=== PATIENT | female | born 1970 | race Caucasian/White ===

== ENCOUNTER 2017-05-01 10:22 | Emergency (ER) | payer OTHER, MEDICARE ==
[~2017-05-01] VITALS: Ht 162.6 cm; Wt 104.5 kg
--- NOTE | 2017-05-01 10:39 | ED.REPORT ---
HPI-Chest Pain 40 and Over Date of Service May 01, 2017 ED Provider: Natalio [place] Patient is a 46 year old female with a hx of prediabetes and CVAx2 who presents to the ED via EMS complaining of L sided chest pain while sitting it 0930 this morning. She describes her pain as a burning pressure that radiates through to her upper back and her L arm. Associated symptoms include nausea and SOB. She denies fatigue, fever, new numbness or weakness, or any other symptoms. She was given nitro x2 and aspirin en route with some relief. She has not has similar symptoms previously. Her mother had an DE in her early 50's. Patient only took her methylphenidate this morning. 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 Smoking History Never Smoker Social History Alcohol Use: "Social" Other Social History: Ambulatory Status Independent Review of Systems Constitutional: Denies: Fatigue, Fever Cardiovascular: Reports: Chest pain GI: Reports: Nausea Musculoskeletal: Reports: Back pain, Extremity pain (L arm) Neurologic: Denies: Numbness, Weakness Complete sys rev & neg: except as marked. Physical Exam Initial Vital Signs Vital Signs (First) Date Time Temp Pulse Resp B/P Pulse Ox O2 Delivery O2 Flow Rate FiO2 05/01/17 10:40 36.9 68 18 184/81 97 Room Air Initial VS: Reviewed, Vital signs abnormal Head / Eyes: Atraumatic, Normocephalic Neck: Full range of motion Skin: Warm, Dry Neurologic: Alert, Oriented, Nonfocal Psychiatric: Mood/affect normal, Behavior normal, Normal thought content General/Constitutional: Awake, Alert, No acute distress, Well developed Respiratory / Chest: Breath sounds NL, Breath sounds = bilat, No respiratory distress chest pain not reproducible with palpation. Cardiovascular: Heart rate NL, Regular rhythm, Heart sounds NL Abdomen: Soft, Non-tender Interpretation & Diagnostics Lab Results Interpretation Result Diagram: 05/01/17 1123 05/01/17 1123 Test 05/01/17 11:23 05/01/17 13:30 White Blood Count 7.2th/mm3 (3.8-10.1) Red Blood Count 4.96mil/mm3 (3.90-5.20) Hemoglobin 14.8g/dL (12.0-15.6) Hematocrit 44.4% (35.0-46.0) Mean Corpuscular Volume 89.5fL (81-100) Mean Corpuscular Hemoglobin 29.8pg (27.0-35.0) Mean Corpuscular Hemoglobin Concent 33.3% (32.0-37.0) Red Cell Distribution Width 14.2% (12.3-15.4) Platelet Count 179bil/L (150-400) Neutrophils (%) (Auto) 59.8% (40-74) Lymphocytes (%) (Auto) 25.8% (14-46) Monocytes (%) (Auto) 9.7% (4-12) Eosinophils (%) (Auto) 4.0% (0-5) Basophils (%) (Auto) 0.4% (0-3) Sodium Level 138mEq/L (134-144) Potassium Level 4.4mEq/L (3.5-5.2) Chloride Level 103mEq/L (97-108) Carbon Dioxide Level 18mmol/L (18-29) Blood Urea Nitrogen 11mg/dL (6-24) Creatinine 0.75mg/dL (0.57-1.00) Estimat Glomerular Filtration Rate 118mL/min (>59) Glucose Level 125mg/dL (60-99) Calcium Level 9.4mg/dL (8.5-10.1) Magnesium Level 2.1mg/dL (1.6-2.6) Total Bilirubin 0.4mg/dL (0.0-1.2) Aspartate Amino Transf (AST/SGOT) 23U/L (0-50) Alanine Aminotransferase (ALT/SGPT) 18U/L (0-32) Alkaline Phosphatase 73U/L (25-150) Total Protein 7.2g/dL (6.4-8.4) Albumin 4.0g/dL (3.4-5.0) Troponin T < 0.010ug/L (0.0-0.011) ECG Interpretation ECG Interpretation: sinus rate 72 nL interval L axis deviation no acute ST changes Time: 10:44 Interpreted by: ED physician ECG Interpretation: sinus rate 62 No change from previous Time: 12:46 Interpreted by: ED physician Repeat ECG: Repeat ECG unchanged X-Ray Chest Interpretation Chest Xray Interpretation: IMPRESSION: 1. No acute cardiopulmonary disease. Dictated by: Theo Arriaga M.D. on 05/01/2017 at 11:04 Approved by: Theo Arriaga M.D. on 05/01/2017 at 11:04 View: Portable, 1 view Interpretation / Wet Read by: Interpret - Radiologist CT Chest Interpretation IMPRESSION: 1. Normal thoracic and abdominal aorta. No aneurysm or dissection. No aortic leak. 2. No definitive pulmonary embolus. Pulmonary arteries are normal in caliber. 3. A 6 mm ground glass nodule in the posterior segment of the left upper lobe. Please see followup recommendation. 4. A large left thyroid nodule. Please correlate with ultrasound findings and biopsy result dated 12/11/2016. 5. Trace pericardial effusion. Fleischner Society criteria for SUB-SOLID lung nodule followup. Solitary pure ground-glass nodules5 mm or lessNo followup needed. >5 mm3 mo follow-up CT to confirm persistence. Then annual CT for 3 years. Part-solid nodules3 mo follow-up CT to confirm persistence. If persistent with solid component <5 mm, annual CT for at least 3 years. If solid component is 5 mm or more, biopsy or surgical resection. Consider PET-CT for lesions > 10 mm. Multiple sub-solid nodulesPure ground glass nodules [address] at 2 and 4 years. Pure ground glass nodules >5 mm without dominant lesion. [address] to confirm persistence, then annual followup CT for at least 3 years. Dominant nodule(s) with part-solid or solid component. [address] to confirm persistence. If persistent, consider biopsy or surgical resection, shannon if lesions have >5 mm solid component. Dictated by: Alexa Gonzalez M.D. on 05/01/2017 at 14:26 Approved by: Alexa Gonzalez M.D. on 05/01/2017 at 14:36 Study type: CT pulm angiogram Interpretation / Wet Read by: Interpret - Radiologist Re-Eval/Medical Decision Med Decision/Clinical Course The patient presents with sudden onset of left chest and left upper back pain radiating to her left arm. Her story is very concerning for ischemia or dissection. The patient was quite hypertensive upon arrival. Her symptoms almost completely resolved but did not entirely. She was evaluated for pulmonary embolus, aortic dissection, and DE. There is no obvious explanation for her symptoms. The patient had 2 negative troponins and to unchanged EKGs. The patient's pain is somewhat atypical for ischemia given her back symptoms. A partial list of additional differential diagnoses considered were pneumonia, esophageal spasm, electrolyte abnormality, radiculopathy, and pleurisy. Time of Eval: 12:59 Re-Evaluation/Progress Note: Rechecked patient. Pain was down to a 2/10 but is now coming back. Time of Eval: 14:43 Re-Evaluation/Progress Note: Rechecked pt. Discussed imaging results. Discussed plan for discharge. Patient understands and agrees with plan. All questions addressed at this time. Consultation : Referral / Consult Name: Bandar Haywood DO Call Returned at: 14:54 [employer] Repairer: Will see in office, Agrees with eval, Agrees with plan Note: Discussed pt case with pt's PCP. Will follow up with pt in office. Counseled Regarding: Diagnosis, Lab results, Need for follow-up, When/why to return to ED Discharge & Departure Primary Impression: Chest pain Chest pain type: unspecified Qualified Code: R07.9 - Chest pain, unspecified Additional Impression: Back pain Back pain location: back pain in unspecified location Chronicity: acute Back pain laterality: left Qualified Code: M54.9 - Dorsalgia, unspecified Disposition: Home Discharge Condition All VS Reviewed: Yes Condition: Stable Patient Instructions: Back Pain (ED), Chest Pain (ED) Additional Instructions: Thank you for entrusting us with your care. We have ruled out several serious causes for your pain including heart attack, blood clot in the lung, tearing of the vessel, and pneumonia. Your heart could still be the cause of your symptoms so you would follow up with your primary doctor in the next week to schedule a stress test. You will need a follow up CT in 3 months. Return to the emergency department if you experience new or worsening symptoms. Referrals: Bandar Haywood DO (PCP) Scribe Attestation Portions of this note were transcribed by Jamey Robb. I, Dr. Lance personally performed the history, physical exam and medical decision-making; I reviewed and confirmed the accuracy of the information in the transcribed note. Signed by: Jamey Robb 05/01/17, 2580 copies to: Bandar Haywood Jena M MD May 01, 2017 10:39 JAMEY ROBB May 01, 2017 10:57
[2017-05-01 10:40] VITALS: BP 184/81; PULSE 68; RESP 18; O2SAT 97
[2017-05-01] MEDS ORDERED: Nitroglycerin 2% 1 Gm Ointment TOPICAL ONE (11:00)
[2017-05-01] MEDS ORDERED: MeTOProlol 1 mg/mL 5 mL Inj IVPUSH ONE (11:00)
--- NOTE | 2017-05-01 11:05 | DRSVH ---
PROCEDURE: X-RAY CHEST ONE VIEW, PORTABLE ([id number]) INDICATIONS: Chest pain TECHNIQUE: One view of the chest was acquired. COMPARISON: None. FINDINGS: Surgical changes and devices: None. Lungs and pleura: No pleural effusions or pneumothorax. Lungs are clear. Mediastinum: Mediastinal contours appear normal. Heart size is normal. Bones and chest wall: No suspicious bony lesions. Overlying soft tissues appear unremarkable. IMPRESSION: 1. No acute cardiopulmonary disease. Dictated by: Theo Arriaga M.D. on 05/01/2017 at 11:04 Approved by: Theo Arriaga M.D. on 05/01/2017 at 11:04
[2017-05-01 11:19] VITALS: BP 135/74; PULSE 92; RESP 18; O2SAT 94
[2017-05-01 11:31] LABS: BASOPHILS % (AUTO) 0.4 % (0-3); MONOCYTES % (AUTO) 9.7 % (4-12); Mean Corpuscular Hemoglobin 29.8 pg (27.0-35.0); Mean Corpuscular Volume 89.5 fL (81-100); NEUTROPHILS % (AUTO) 59.8 % (40-74); Platelet Count 179 bil/L (150-400)
[2017-05-01 11:35] VITALS: BP 129/82; PULSE 60; RESP 18; O2SAT 96
[2017-05-01] MEDS ORDERED: LidocaineVisc 2%:Antacid 1:1 10 mL Syringe PO ONE (11:40)
[2017-05-01 11:52] LABS: TROPONIN T 0.01 ug/L (0.0-0.011)
[2017-05-01 12:04] LABS: Magnesium 2.1 mg/dL (1.6-2.6)
[2017-05-01 12:15] VITALS: BP 133/74; PULSE 68; RESP 16; O2SAT 94
[2017-05-01] MEDS ORDERED: HYDROmorphone 0.5 mg/0.5 mL iSecure Syringe IVPUSH ONE (14:00)
--- NOTE | 2017-05-01 14:39 | DRSVH ---
PROCEDURE: CT ANG CHEST/ABD W/WO CONTRAST ([id number]) INDICATIONS: chest and back pain TECHNIQUE: Precontrast 5 mm thick sections acquired from the lung apices to the iliac crests. After the adminis tration of intravenous contrast, 3 mm thick sections again acquired from the lung apices to the iliac crests. 3-dimensional maximum intensity projection (MIP) oblique sagittal and coronal reformats wer e then acquired, and/or 3-dimensional volume rendering reformats. For radiation dose reduction, the following was used: automated exposure control. COMPARISON: None. FINDINGS: Image quality: Excellent. AORTA: The aorta is normal in caliber and enhancement. No aneurysm or dissection. No evidence for ao rtic leak. The celiac trunk, superior mesenteric artery, and inferior mesenteric artery are normal. T here is a single renal artery on the right side, which is normal in caliber and patent. There are 2 l eft renal artery with an accessory left renal artery supplying the inferior pole. Both left renal art eries are patent without significant disease. The bifurcation is normal. The common iliac arteries ar e normal in caliber. CHEST: Lungs and pleura: There is a 6 mm ground glass nodule in the posterior segment of the left upper lob e (series 10 image 21). No acute airspace opacities. No pleural effusions or pneumothorax. Central and peripheral airways are patent and normal in caliber. Mediastinum: Heart size is normal. Trace pericardial effusion. No mediastinal or hilar adenopathy b y size criteria. Central pulmonary arteries are normal in size. Esophagus is normal in caliber. No hiatal hernias. Bones and chest wall: No axillary adenopathy by size criteria. Thyroid gland contains a large heter ogeneous nodule in the left lower lobe. No suspicious bony lesions. No vertebral body compression f ractures. ABDOMEN: Vasculature: Celiac trunk and mesenteric arteries are patent. Renal arteries are also patent. Solid organs: Liver and spleen are normal in size. Gallbladder is normal. Biliary system is non di lated. Pancreas enhances normally. No adrenal nodules. Both kidneys are normal in size and enhance ment, without hydronephrosis. Peritoneum and bowel: No free fluid or air. Bowel loops are normal in caliber and wall thickness. Nodes and vessels: No retroperitoneal or mesenteric adenopathy by size criteria. Inferior vena cava is normal in morphology. Bones: No suspicious bony lesions. No vertebral body compression fractures. Miscellaneous: No ventral hernias. IMPRESSION: 1. Normal thoracic and abdominal aorta. No aneurysm or dissection. No aortic leak. 2. No definitive pulmonary embolus. Pulmonary arteries are normal in caliber. 3. A 6 mm ground glass nodule in the posterior segment of the left upper lobe. Please see followup re commendation. 4. A large left thyroid nodule. Please correlate with ultrasound findings and biopsy result dated 11/25. 5. Trace pericardial effusion. Fleischner Society criteria for SUB-SOLID lung nodule followup. Solitary pure ground-glass nodules5 mm or lessNo followup needed. >5 mm3 mo follow-up CT to confirm persistence. Then annual CT for 3 years. Part-solid nodules3 mo follow-up CT to confirm persistence . If persistent with solid component <5 mm, annual CT for at least 3 years. If solid component is 5 mm or more, biopsy or surgical resection. Consider PET-CT for lesions > 10 mm. Multiple sub-solid nodulesPure ground glass nodules [address] at 2 and 4 years. Pure ground glass nodules >5 mm without dominant lesion. [address] to confirm persistence, then annual followup CT for at least 3 years. Dominant nodule(s) with part-solid or solid component. [address] to confirm persistence. If persistent, consider biopsy or surgical resection, shannon if lesions have >5 m m solid component. Dictated by: Alexa Gonzalez M.D. on 05/01/2017 at 14:26 Approved by: Alexa Gonzalez M.D. on 05/01/2017 at 14:36
[2017-05-01 15:21] VITALS: BP 11/71; PULSE 64; RESP 18; O2SAT 94
[2017-05-01 15:31] VITALS: BP 114/72; PULSE 64; RESP 18; O2SAT 94
== END 2017-05-01 15:34 | disposition home or self-care (01) ==
LOC: SED 10:22 → EDBD 10:22 → SED 15:34
DX: R07.9 Chest pain, unspecified (principal); M54.9 Dorsalgia, unspecified; R11.0 Nausea; R06.02 Shortness of breath; R73.03 Prediabetes; Z88.1 Allergy status to other antibiotic agents; Z88.0 Allergy status to penicillin; Z86.73 Personal history of transient ischemic attack (TIA), and cerebral infarction without residual deficits
CPT/HCPCS: 36415; 71010; 71275; 74175; 80053; 82948; 83735; 84484; 85025; 93005; 96374; 99285; Q9967